=== PATIENT | male | born 1990 | race Caucasian/White ===

== ENCOUNTER 2017-02-09 09:38 | Emergency (ER) | payer SELFPAY ==
[~2017-02-09] VITALS: Ht 185.4 cm; Wt 86.2 kg
[2017-02-09] MEDS ORDERED: MOBIC7.5 MG PO (09:47)
[2017-02-09] MEDS ORDERED: SOMA350 MG PO (09:48)
[2017-02-09] MEDS ORDERED: OXYCODONE HCL20 M1 PO (09:48)
[2017-02-09] MEDS ORDERED: METHYLPREDNISOLO4 M1 PO (10:02)
== END 2017-02-09 10:10 | disposition home or self-care (01) ==
LOC: ED 09:38
DX: M54.5 Low back pain (principal); Z90.89 Acquired absence of other organs; Z79.899 Other long term (current) drug therapy
CPT/HCPCS: 99283

== ENCOUNTER 2018-08-29 14:10 | Emergency (ER) | payer OTHER ==
[~2018-08-29] VITALS: Ht 185.4 cm; Wt 86.2 kg
--- OUTSIDE RECORDS SUMMARY | ~2018-08-29 | XMS | Encounter Summary ---
Demographics + + + | Address | [address] | | | [place] [address] | + + + | Home Phone | | + + + | Preferred Language | Unknown | + + + | Marital Status | Single | + + + | Episcopalian Affiliation | Unknown | + + + | Race | Unknown | + + + | Ethnic Group | Unknown | + + + Author + + + | Author | [facility] | | | and [place]it[place] | + + + | Organization | [facility] | | | and [place] | + + + | Address | Unknown | + + + | Phone | Unavailable | + + + Support + + +---------+ + | Name | Relationship | Address | Phone | + + +---------+ + | Ottoniel Madison | ECON | Unknown | | + + +---------+ + Care Team Providers + +------+ + | Care Grants And Contracts Assistant Name | Role | Phone | + +------+ + | Jenaro Lutz MD | PCP | | + +------+ + Encounter Details +--------+ + + + + | Date | Type | Department | Care Team | Description | +--------+ + + + + | 05/08/ | Procedure | [facility] | | | | 2017 | Pass | [facility] [address] | | | | | | [place], | | | | | | [place] [address] | | | | | | [phone] | | | +--------+ + + + + Social History + +-------+ +--------+------+ | Tobacco Use | Types | Packs/Day | Years | Date | | | | | Used | | + +-------+ +--------+------+ | Former Smoker | | | | | + +-------+ +--------+------+ + +------+---+---+ | Smokeless Tobacco: | Chew | | | | Current User | | | | + +------+---+---+ + + + | Sex Assigned at | Date Recorded | | | | + + + | Not on file | | + + + as of this encounter Plan of Treatment +--------+---------+ + + + | Date | Type | Specialty | Care Team | Description | +--------+---------+ + + + | 09/05/ | Office | Orthopedic Surgery | Xu Barajas | | | 2018 | Visit | | MD Mu Kaplan | | | | | | [place] | | | | | | [id number] | | | | | | | | +--------+---------+ + + + as of this encounter Visit Diagnoses Not on filein this encounter"
--- OUTSIDE RECORDS SUMMARY | ~2018-08-29 | XMS | Encounter Summary ---
Demographics + + + | Address | [address] | | | [place] [address] | + + + | Home Phone | | + + + | Preferred Language | Unknown | + + + | Marital Status | Single | + + + | Christian Affiliation | Unknown | + + + | Race | Unknown | + + + | Ethnic Group | Unknown | + + + Author + + + | Author | [facility] | | | and [place]it[place] | + + + | Organization | [facility] | | | and [place] | [...] Team Providers + +------+ + | Care Material Disposition Inspector Name | Role | Phone | + +------+ + | Jenaro Lutz MD | PCP | | + +------+ + Reason for Referral Diagnostic/Screening (Routine) +--------+--------+ + + + + | Status | Reason | Specialty | Diagnoses / | Referred By | Referred To | | | | | Procedures | Contact | Contact | +--------+--------+ + + + + | Closed | | Radiology | Diagnoses | Amy, | [facility] | | | | | Pain in | Rory | [address] | | | | | both knees, | [address] Boss | [place], | | | | | unspecified | [address] | [place] | | | | | chronicity | [place] | [address] | | | | | Internal | [place], [place] | Phone: | | | | | derangement | [address] | [phone] | | | | | of both | Phone: | Fax: | | | | | knees | [phone] | [phone] | | | | | Procedures | Fax: | | | | | | MRI Knee | [phone] | | | | | | Right wo | | | | | | | Contrast | | | +--------+--------+ + + + + Diagnostic/Screening (Routine) +--------+--------+ + + + + | Status | Reason | Specialty | Diagnoses / | Referred By | Referred To | | | | | Procedures | Contact | Contact | +--------+--------+ + + + + | Closed | | Radiology | Diagnoses | Amy, | [facility] | | | | | Pain in | Rory | [address] | | | | | both knees, | MADELEINE Bsos | [place], | | | | | unspecified | [address] | [place] | | | | | chronicity | [place] | [address] | | | | | Internal | [place], [place] | Phone: | | | | | derangement | [address] | [phone] | | | | | of both | Phone: | Fax: | | | | | knees | [phone] | [phone] | | | | | Procedures | Fax: | | | | | | MRI Knee | [phone] | | | | | | Right wo | | | | | | | Contrast | | | +--------+--------+ + + + + Reason for Visit Diagnostic/Screening (Routine) +--------+--------+ + + + + | Status | Reason | Specialty | Diagnoses / | Referred By | Referred To | | | | | Procedures | Contact | Contact | +--------+--------+ + + + + | Closed | | Radiology | Diagnoses | Amy, | [facility] | | | | | Pain in | Rory | [address] | | | | | both knees, | MADELEINE Boss | [place], | | | | | unspecified | [address] | [place] | | | | | chronicity | [place] | [address] | | | | | Internal | [place] | Phone: | | | | | derangement | [address] | [phone] | | | | | of both | Phone: | Fax: | | | | | knees | [phone] | [phone] | | | | | Procedures | Fax: | | | | | | MRI Knee | [phone] | | | | | | Right wo | | | | | | | Contrast | | | +--------+--------+ + + + + Encounter Details +--------+ + + + + | Date | Type | Department | Care Team | Description | +--------+ + + + + | 06/13/ | Hospital | [facility] | Rory Reyes | Pain in both knees, | | 2019 | Encounter | MED CTR MRI [address] | [address] | unspecified | | | | [address] [place], | [address] [place] | chronicity; Internal | | | | [place] [address] | [place] [address] | derangement of both | | | | [phone] | [phone] | knees | | | | | | | +--------+ + + + [...] + + + as of this encounter Medications at Time of Discharge + + +-------+---------+ + + | Medication | Sig. | Disp. | Refills | Start | End Date | | | | | | Date | | + + +-------+---------+ + + | Ascorbic Acid | VITAMIN C 250 MG | | | 12/21/19 | | | (VITAMIN C) 250 MG | TABS | | | 18 | | | tablet | | | | | | + + +-------+---------+ + + | | Take by mouth as | | | | | | Aspirin-Acetaminophe | needed. | | | | | | n-Caffeine (EXCEDRIN | | | | | | | PO) | | | | | | + + +-------+---------+ + + | raNITIdine | RANITIDINE HCL 150 | | | 12/21/19 | | | (ZANTAC) 150 MG | MG CAPS | | | 18 | | | capsule | | | | | | + + +-------+---------+ + + as of this encounter Plan of Treatment +--------+---------+ + + + | Date | Type | Specialty | Care Team | Description | +--------+---------+ + + + | 09/05/ | Office | Orthopedic Surgery | Xu Barajas | | | 2019 | Visit | | MD Mu Kaplan | | | | | | [place] | | | | | | [id number] | | | | | | | | +--------+---------+ + + + as of this encounter Procedures + +--------+ + + + | Procedure Name | Priori | Date/Time | Associated Diagnosis | Comments | | | ty | | | | + +--------+ + + + | MRI KNEE RIGHT WO | Routin | 06/13/2018 | Pain in both | Results for this | | CONTRAST | e | 1431 PST | knees, unspecified | procedure are in the | | | | | chronicity Internal | results section. | | | | | derangement of both | | | | | | knees | | + +--------+ + + + in this encounter Results MRI Knee Right wo Contrast (06/13/2018 1431) + + + | Narrative | Performed At | + + + | TECHNIQUE: MRI of the right knee with sequences to include sagittal | [facility] | | STIR, axial proton density, sagittal proton density, coronal proton | | | density, coronal T1, and sagittal T2. CLINICAL INFORMATION: | | | BILATERAL KNEE PAIN COMPARISON: Radiographs 05/04/2018 | | | FINDINGS: JOINT EFFUSION None. MENISCI Medial meniscus: | | | Intact. Lateral meniscus: Intact. LIGAMENTS Cruciate ligaments: | | | Anterior cruciate ligament is intact. Posterior cruciate ligament | | | is intact. Medial collateral ligament complex: Intact. Lateral | | | collateral ligament complex: Intact. Posterolateral corner | | | structures: Intact. EXTENSOR MECHANISM Extensor mechanism: The | | | distal quadriceps and patellar tendons are intact. The patella is | | | normally positioned within the femoral groove. OSSEOUS and | | | ARTICULAR STRUCTURES Bones: No fracture, bone marrow edema, or bony | | | lesion. Patellofemoral compartment: No hyaline cartilage disease. | | | Medial compartment: No hyaline cartilage disease. Lateral | | | compartment: No hyaline cartilage disease. OTHER FINDINGS | | | Neurovascular structures: Unremarkable . Soft tissues: Small Ryan's | | | cyst noted. Nonspecific mild distention of the capsule surrounding | | | the mid popliteus tendon. Mild edema is noted within the anterior | | | aspect of the popliteus muscle. Slight prominent medial plica | | | noted. IMPRESSION - No ligament or meniscus tear. Mild | | | focal edema at the anterior aspect of the popliteus muscle, may | | | represent mild strain. The popliteus tendon appears intact. | | | Slight prominent appearance of a medial plica. Small Ryan's cyst. | | | Dictated and Signed by: John Fan MD Electronically | | | signed: 06/13/2018 2:50 PM | | + + + + + | Procedure Note | + + | Serg, Rad Results In - 06/13/2018 1453 PST TECHNIQUE: MRI of the right knee with | | sequences to include sagittal STIR, axialproton density, sagittal proton density, | | coronal proton density, coronal T1, andsagittal T2.CLINICAL INFORMATION: BILATERAL KNEE | | PAINCOMPARISON: Radiographs 05/04/2018FINDINGS:JOINT EFFUSIONNone.MENISCIMedial | | meniscus: Intact. Lateral meniscus: Intact. LIGAMENTSCruciate ligaments: Anterior | | cruciate ligament is intact. Posterior cruciateligament is intact.Medial collateral | | ligament complex: Intact.Lateral collateral ligament complex: Intact. Posterolateral | | corner structures: Intact.EXTENSOR MECHANISMExtensor mechanism: The distal quadriceps | | and patellar tendons are intact. Thepatella is normally positioned within the femoral | | groove.OSSEOUS and ARTICULAR STRUCTURESBones: No fracture, bone marrow edema, or bony | | lesion.Patellofemoral compartment: No hyaline cartilage disease. Medial compartment: No | | hyaline cartilage disease.Lateral compartment: No hyaline cartilage disease.OTHER | | FINDINGSNeurovascular structures: Unremarkable .Soft tissues: Small Ryan's cyst noted. | | Nonspecific mild distention of thecapsule surrounding the mid popliteus tendon. Mild | | edema is noted within theanterior aspect of the popliteus muscle. Slight prominent | | medial plica noted.IMPRESSION - No ligament or meniscus tear.Mild focal edema at the | | anterior aspect of the popliteus muscle, may representmild strain. The popliteus tendon | | appears intact.Slight prominent appearance of a medial plica.Small Ryan's | | cyst.Dictated and Signed by: John Fan MD Electronically signed: 06/13/2018 2:50 PM | |ligament is intact. | |Medial collateral ligament complex: Intact. | |Lateral collateral ligament complex: Intact. | |Posterolateral corner structures: Intact. | | | |EXTENSOR MECHANISM | |Extensor mechanism: The distal quadriceps and patellar tendons are intact. The | |patella is normally positioned within the femoral groove. | | | |OSSEOUS and ARTICULAR STRUCTURES | |Bones: No fracture, bone marrow edema, or bony lesion. | |Patellofemoral compartment: No hyaline cartilage disease. | |Medial compartment: No hyaline cartilage disease. | |Lateral compartment: No hyaline cartilage disease. | | | |OTHER FINDINGS | |Neurovascular structures: Unremarkable . | |Soft tissues: Small Ryan's cyst noted. Nonspecific mild distention of the | |capsule surrounding the mid popliteus tendon. Mild edema is noted within the | |anterior aspect of the popliteus muscle. Slight prominent medial plica noted. | | | | | |IMPRESSION - | |No ligament or meniscus tear. | | | |Mild focal edema at the anterior aspect of the popliteus muscle, may represent | |mild strain. The popliteus tendon appears intact. | | | |Slight prominent appearance of a medial plica. | | | |Small Ryan's cyst. | | | |Dictated and Signed by: John Fan MD | | Electronically signed: 06/13/2018 2:50 PM | + + + +---------+ + + | Performing | Address | City/State/Zipcode | Phone Number | | Organization | | | | + +---------+ + + | [facility] | | | | + +---------+ + + in this encounter Visit Diagnoses + + | Diagnosis | + + | Pain in both knees, unspecified chronicity | + + | Internal derangement of both knees | + + | Unspecified internal derangement of knee | + +"
--- OUTSIDE RECORDS SUMMARY | ~2018-08-29 | XMS | Encounter Summary ---
Demographics + + + | Address | [address] | | | [place] [address] | + + + | Home Phone | | + + + | Preferred Language | Unknown | + + + | Marital Status | Single | + + + | Samaritan Affiliation | Unknown | + + + | Race | Unknown | + + + | Ethnic Group | Unknown | + + + Author + + + | Author | [facility] | | | and [place] | + + + | Organization | [facility] | | | and [place] [...] Team Providers + +------+ + | Care Electrical Contacts Adjuster Name | Role | Phone | + +------+ + | Jenaro Lutz MD | PCP | | + +------+ + Reason for Visit + + + | Reason | Comments | + + + | Follow-up | right knee pain/ review MRI | + + + Encounter Details +--------+---------+ + + + | Date | Type | Department | Care Team | Description | +--------+---------+ + + + | 06/13/ | Office | [facility] | Rory Reyes | Plica syndrome of | | 2019 | Visit | ORTHOPEDIC SURGERY | [address] | right knee (Primary | | | | [address] | [address] [place] | Dx); Chronic pain of | | | | [place], [place] | [place] [address] | right knee | | | | [address] | [phone] | | | | | [phone] | | | +--------+---------+ + + + Social History + +-------+ [...] + + + as of this encounter Last Filed Vital Signs + + + + | Vital Sign | Reading | Time Taken | + + + + | Blood Pressure | - | - | + + + + | Pulse | - | - | + + + + | Temperature | - | - | + + + + | Respiratory Rate | - | - | + + + + | Oxygen Saturation | - | - | + + + + | Inhaled Oxygen | - | - | | Concentration | | | + + + + | Weight | 86.2 kg (190 lb) | 06/13/20181520 PST | + + + + | Height | 185.4 cm (6' 1") | 06/13/20181520 PST | + + + + | Body Mass Index | 25.07 | 06/13/20181520 PST | + + + + in this encounter Progress Notes Rory Reyes PA-C - 06/13/2018 1530 PSTFormatting of this note may be different fro m the original. Name:Dannie Rosales Todays Date: 06/15/2018 Age: 27 y.o. PCP: Jenaro Lutz MD Chief Complaint Patient presents with Follow-up right knee pain/ review MRI SUBJECTIVE: Patient returns today to review right knee MRI that was recently obtained. To review patie nt has had chronic right knee pain has been present for well over the past 4-5 years. Descr ibes he has had multiple traumas at the right knee but is never had any thorough investigati ve workup. He has had several courses of injection therapy at see both of his knees over past several years professed in that he obtains about 3-4 injections every year by his [facility] care provider in [place]. He verbalizes that he has had well over 12 injections H knee o sarwat the past many years. Describes of the number may be even double that. The right knee p ain continues to be prominent and worse at the medial aspect of the knee. Pain is increased with any degree of mobilization, weightbearing and any increased activity. Current level p ain is rated at 5 OBJECTIVE: Ambulates without assistance of a walker and/or cane. No significant abnormal gait is obse rved. No guarding is clearly appreciated with simple inspection. He has prominent pain whe n palpating over the anterior medial mid joint line compartment. This is the area that is c ausing him pain. He has pain with Mary test. Imaging/Studies: Mri Knee Right Wo Contrast Result Date: 06/13/2018 TECHNIQUE: MRI of the right knee with sequences to include sagittal STIR, axial proton dens ity, sagittal proton density, coronal proton density, coronal T1, and sagittal T2. CLINICAL INFORMATION: BILATERAL KNEE PAIN COMPARISON: Radiographs 05/04/2018 FINDINGS: JOINT EFFUSION None. MENISCI Medial meniscus: Intact. Lateral meniscus: Intact. LIGAMENTS Cruciate ligame nts: Anterior cruciate ligament is intact. Posterior cruciate ligament is intact. Medial co llateral ligament complex: Intact. Lateral collateral ligament complex: Intact. Posterolater al corner structures: Intact. EXTENSOR MECHANISM Extensor mechanism: The distal quadriceps a nd patellar tendons are intact. The patella is normally positioned within the femoral groove . OSSEOUS and ARTICULAR STRUCTURES Bones: No fracture, bone marrow edema, or bony lesion. Pa tellofemoral compartment: No hyaline cartilage disease. Medial compartment: No hyaline carti tristan disease. Lateral compartment: No hyaline cartilage disease. OTHER FINDINGS Neurovascula r structures: Unremarkable . Soft tissues: Small Ryan's cyst noted. Nonspecific mild diste ntion of the capsule surrounding the mid popliteus tendon. Mild edema is noted within the a nterior aspect of the popliteus muscle. Slight prominent medial plica noted. IMPRESSION - N o ligament or meniscus tear. Mild focal edema at the anterior aspect of the popliteus muscle , may represent mild strain. The popliteus tendon appears intact. Slight prominent appearan ce of a medial plica. Small Ryan's cyst. Dictated and Signed by: John Fan MD Electr onically signed: 06/13/2018 2:50 PM Vitals: 06/13/18 1521 Weight: 86.2 kg (190 lb) Height: 1.854 m (6' 1") ASSESSMENT/PLAN: 1. Chronic right knee pain 2. Right knee medial plica A. we carefully reviewed the MRI today. There is no clear suggestion of meniscal patholog y but there is suspicion that he may have a small focal tear at the anterior horn of the med ial meniscus that is observed best on the coronal views. An 9 ligament with the radiologist that it is appear to be a prominent medial plica observed also at the anterior medial horn. Patient has had chronic pain for many years and received numerous injections of this knee which is forced to provide no significant pain relief. He easily has had the most numerous injections that have observed for a patient at this young of age. We discussed treatment op tions to include continued observation, pain medication, physical therapy and repeat injecti on therapy. We discussed definitive treatment in the way of diagnostic arthroscopy. Given that he has failed multiple conservative measures over the past many years to include observ ation, modification of activity [id number] medication and numerous injection therapy h stella wishes to pursue with definitive treatment. He is a good candidate for a right knee arthr oscopy and debridement. We can remove the right knee plica which may indeed provide him colin e degree of pain relief. There is increased effusion observed at the knee as well and I sti ll do question the possibility of a meniscus tear that may not be well visualized on the MRI . In light of these discussion I will seek medical authorization for a right knee arthrosco py and debridement. Follow-up in my office will be for preoperative exam. B. Patient is advised that if they have any questions, comments or concerns to contact our office. Electronically signed by: Rory Reyes PA-C 06/15/2018 17:06 If patient received pain medication today the prescription monitoring program was reviewed and patient appears to be in compliance with his program. This note was dictated using the [email or web address] recognition system. Minor errors in grammar may have occurred. 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
--- OUTSIDE RECORDS SUMMARY | ~2018-08-29 | XMS | Encounter Summary ---
Demographics + + + | Address | [address] | | | [place] [address] | + + + | Home Phone | | + + + | Preferred Language | Unknown | + + + | Marital Status | Single | + + + | Hoahaoism Affiliation | Unknown | + + + | Race | Unknown | + + + | Ethnic Group | Unknown | + + + Author + + + | Author | [facility] | | | and Manjitana | + + + | Organization | [facility] | | | and [...] Team Providers + +------+ + | Care Jogger Operator Name | Role | Phone | + +------+ + | Jenaro Lutz MD | PCP | | + +------+ + Reason for Visit Auth/Cert +--------+--------+ + + + + | Status | Reason | Specialty | Diagnoses / | Referred By | Referred To | | | | | Procedures | Contact | Contact | +--------+--------+ + + + + | | | | Diagnoses | | | | | | | Plica | | | | | | | syndrome of | | | | | | | right knee | | | | | | | (M67.51), | | | | | | | Chronic pain | | | | | | | of right | | | | | | | knee | | | | | | | (M25.561, | | | | | | | G89.29), | | | | | | | Internal | | | | | | | derangement | | | | | | | of both | | | | | | | knees | | | | | | | (M23.91, | | | | | | | M23.92) | | | | | | | Procedures | | | | | | | MO KNEE | | | | | | | SCOPE,DIAGNO | | | | | | | STIC MO | | | | | | | KNEE | | | | | | | SCOPE,PART | | | | | | | SYNOVECT MO | | | | | | | KNEE | | | | | | | SCOPE,SHAVE | | | | | | | ARTICULAR | | | | | | | CART MO | | | | | | | ARTHRS KNEE | | | | | | | W/MENISCECTO | | | | | | | MY MED&LAT | | | | | | | W/SHAVING | | | | | | | MO ARTHRS | | | | | | | KNE SURG | | | | | | | W/MENISCECTO | | | | | | | MY MED/LAT | | | | | | | W/SHVG MO | | | | | | | KNEE | | | | | | | SCOPE,MED OR | | | | | | | LAT MENIS | | | | | | | REPAIR | | | | | | | RIGHT KNEE | | | | | | | ARTHROSCOPY | | | | | | | & | | | | | | | DEBRIDEMENT | | | +--------+--------+ + + + + Encounter Details +--------+---------+ + + + | Date | Type | Department | Care Team | Description | +--------+---------+ + + + | 08/25/ | Surgery | [facility] | Xu Barajas | RIGHT KNEE | | 2019 | | MED CTR OR INTRA OP | MD E[address] [facility] | ARTHROSCOPY & | | | | [address] | [place] | DEBRIDEMENT AND | | | | [place] | [address] | PARTIAL SYNOVECTOMY | | | | [address] | | | | | | [phone] | | | +--------+---------+ + + + Social History + + + +--------+ + | Tobacco Use | Types | Packs/Day | Years | Date | | | | | Used | | + + + +--------+ + | Former Smoker | Cigarettes | | 10 | Quit: 02/04/2018 | + + + +--------+ + + +------+---+---+ | Smokeless Tobacco: | Chew | | | | Current User | | | | + +------+---+---+ + + +---------+ + | Alcohol Use | Drinks/We | oz/Week | Comments | | | ek | | | + + +---------+ + | Yes | 2 Cans | 1.2 | | | | of beer | | | + + +---------+ + + + + | Sex Assigned at | Date Recorded | | | | + + + | Not on file | | + + + as of this encounter Last Filed Vital Signs + + + + | Vital Sign | Reading | Time Taken | + + + + | Blood Pressure | 126/52 | 08/25/2018 1230 PDT | + + + + | Pulse | 87 | 08/25/2018 1230 PDT | + + + + | Temperature | 36.2 C (97.2 F) | 08/25/2018 1031 PDT | + + + + | Respiratory Rate | 14 | 08/25/2018 1215 PDT | + + + + | Oxygen Saturation | 95% | 08/25/2018 1230 PDT | + + + + | Inhaled Oxygen | - | - | | Concentration | | | + + + + | Weight | 91 kg (200 lb 9.9 | 08/25/201850 PDT | | | oz) | | + + + + | Height | 185.4 cm (6' 1") | 08/25/201850 PDT | + + + + | Body Mass Index | 26.47 | 08/25/201850 PDT | + + + + in this encounter Discharge Instructions Rory Reyes PA-C - 08/25/2018Plekelli keep appointment in Dr Barajas's office as a lready scheduled. Remove the bandages on the third post op day but leave steri-strips in place. Apply bandai ds to portal wound sites. May get wound wet in shower on third post op day. May shower gelacio or to this if bandages and wound are protected from water with Saran wrap or something simil ar. Post Operative Care: You can discontinue use of crutches in 1-2. Proceed to full wt bearing on right foot as tolerated Continue to perform gentle range of motion of knee as tolerated Take pain medication as prescribed if prescribed Take one aspirin 325mg daily for blood thinning therapy for next month. Feel free to bring in your images of your knee at post operative visit to review. No jumping off of tractors.....or your truck Light activities please for 6 wks. If you have any questions, comments or concerns please contact our office Do not exceed 4,000 mg of acetaminophen (Tylenol) per day. Hydrocodone-acetaminophen (Cotopaxi ) and Oxycodone-acetaminophen (Percocet) have 325 mg acetaminophen per tablet. Regular stren gth acetaminophen is 325 mg per tablet. Extra strength has 500 mg per tablet. Do not consume alcohol while taking opioid mediations. If constipation arises, try docusate-senna one tablet twice daily; milk of magnesia 30 mL o nce each night; or Miralax one capful (17 grams) dissolved in half a cup of water once daily for 3 days. If constipation does not resolve within 3 days after discharge, contact the doc tor's office. in this encounter Medications at Time of Discharge + + +--------+---------+ + + | Medication | Sig. | Disp. | Refills | Start | End Date | | | | | | Date | | + + +--------+---------+ + + | Ascorbic Acid | VITAMIN C 250 MG | | | 12/21/19 | | | (VITAMIN C) 250 MG | TABS | | | 18 | | | tablet | | | | | | + + +--------+---------+ + + | aspirin 325 mg | Take 1 tablet by | 30 | 0 | / | | | tablet | mouth Daily. | tablet | | 19 | | + + +--------+---------+ + + | | Take by mouth as | | | | | | Aspirin-Acetaminophe | needed. | | | | | | n-Caffeine (EXCEDRIN | | | | | | | PO) | | | | | | + + +--------+---------+ + + | | Take 1 tablet by | 40 | 0 | / | | | HYDROcodone-acetamin | mouth EVERY 4 TO 6 | tablet | | 19 | | | ophen (NORCO) 5-325 | HOURS NEEDED for | | | | | | mg per tablet | Pain. | | | | | + + +--------+---------+ + + | | Take 1-2 tablets by | 40 | 0 | 08/26/19 | | | oxyCODONE-acetaminop | mouth every 6 hours | tablet | | 19 | | | hen (PERCOCET) 5-325 | as needed for Pain. | | | | | | mg per tablet | | | | | | + + +--------+---------+ + + | raNITIdine | RANITIDINE HCL 150 | | | 12/21/19 | | | (ZANTAC) 150 MG | MG CAPS | | | 18 | | | capsule | | | | | | + + +--------+---------+ + + as of this encounter Plan of Treatment +--------+---------+ + + + | Date | Type | Specialty | Care Team | Description | +--------+---------+ + + + | 09/05/ | Office | Orthopedic Surgery | Xu Barajas | | | 2019 | Visit | | MD Mu Kaplan | | | | | | [address] [address] | | | | | | [address] | | | | | | | | +--------+---------+ + + + as of this encounter Procedures + +--------+ + + + | Procedure Name | Priori | Date/Time | Associated Diagnosis | Comments | | | ty | | | | + +--------+ + + + | ARTHROSCOPY KNEE | | 08/25/2018 | Plica syndrome of | | | | | 1007 PDT | right knee (M67.51), | | | | | | Chronic pain of | | | | | | right knee (M25.561, | | | | | | G89.29), Internal | | | | | | derangement of both | | | | | | knees (M23.91, | | | | | | M23.92) | | + +--------+ + + + +---+--------+ | | Case | | | Notes | | | | +---+--------+ in this encounter Visit Diagnoses Not on filein this encounter Admitting Diagnoses + + | Diagnosis | + + | 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), Chronic pain of right knee (M25.561, G89.29), | | Internal derangement of both knees (M23.91, M23.92) | + + Administered Medications + +--------+ + +------+------+ | Medication Order | MAR | Action | Dose | Rate | Site | | | Action | Date | | | | + +--------+ + +------+------+ | acetaminophen (TYLENOL) tablet | Given | | 1,000 mg | | | | 1,000 mg 1,000 mg, Oral, ONCE, | | 9 9:35 | | | | | 08/25/18 at 1000, For 1 dose, | | PDT | | | | | Pre-op | | | | | | + +--------+ + +------+------+ + +---+ | | | + +---+ | albuterol 2.5 mg/3 mL nebulizer | | | solution 2.5 mg 2.5 mg, | | | Nebulization, ONCE PRN, Wheezing, | | | Starting Tue08/25/18 at 0931, | | | For 1 dose, RT will administer. | | + +---+ | | | + +---+ | albuterol-ipratropium 2.5-0.5 | | | mg/3 mL nebulizer solution 3 mL | | | 3 mL, Nebulization, ONCE PRN, | | | Wheezing, Shortness of Breath, | | | Starting Tue08/25/18 at 1029, For | | | 1 dose, Recovery/Phase I | | + +---+ | | | + +---+ + +-------+ +------+---+---+ | dexamethasone (DECADRON) tablet | Given | | 8 mg | | | | 8 mg 8 mg, Oral, ONCE, Tue | | 9 9:35 | | | | | 08/25/18 at 1000, For 1 dose, | | PDT | | | | | Pre-op | | | | | | + +-------+ +------+---+---+ + +---+ | | | + +---+ | dextrose 50% injection 12.5-25 | | | g 12.5-25 g, Intravenous, EVERY | | | 15 MIN PRN, Low Blood Sugar, Give | | | 12.5g (25 mL) IV if blood | | | glucose 50-69 mg/dL. Give 25g | | | (50 mL) IV if blood glucose < 50, | | | Starting Tue08/25/18 at 0931, | | | Repeat in 15 min if blood glucose | | | remains < 70 mg/dL. Repeat | | | blood glucose in 30 min once | | | blood glucose > 70. | | + +---+ | | | + +---+ | diphenhydrAMINE (BENADRYL) 12.5 | | | mg/5 mL liquid 25 mg 25 mg, | | | Oral, EVERY 4 HOURS PRN, Itching, | | | Starting Tue08/25/18 at 1140, | | | Give nalbuphine 1st, if | | | ineffective or not ordered, | | | administer diphenhydrAMINE. | | | Oral route is preferred. | | + +---+ | | | + +---+ | diphenhydrAMINE (BENADRYL) | | | injection 12.5 mg 12.5 mg, | | | Intravenous, EVERY 4 HOURS PRN, | | | Itching, Starting Tue08/25/18 at | | | 1140, Give nalbuphine 1st, if | | | ineffective or not ordered, | | | administer diphenhydrAMINE. | | | Oral route is preferred. | | + +---+ | | | + +---+ | diphenhydrAMINE (BENADRYL) | | | tablet 25 mg 25 mg, Oral, EVERY | | | 4 HOURS PRN, Itching, Starting | | | 08/25/18 at 1140, Give | | | nalbuphine 1st, if ineffective or | | | not ordered, administer | | | diphenhydrAMINE. Oral route is | | | preferred. | | + +---+ | | | + +---+ + +-------+ +--------+---+---+ | fentaNYL (PF) injection 25 mcg | Given | | 25 mcg | | | | 25 mcg, Intravenous, EVERY 5 MIN | | 9 10:46 | | | | | PRN, Pain, Starting Tue08/25/18 | | PDT | | | | | at 1029, Maximum total dose 200 | | | | | | | mcg. PACU IV Narcotic Priority: | | | | | | | Only use fentanyl for immediate | | | | | | | post-op pain (one dose) or | | | | | | | breakthrough pain when any other | | | | | | | IV narcotics ordered have been | | | | | | | ineffective (if ordered). If | | | | | | | both morphine and hydromorphone | | | | | | | are ordered, use morphine first, | | | | | | | and use hydromorphone if morphine | | | | | | | ineffective. | | | | | | + +-------+ +--------+---+---+ +-------+ +--------+---+---+ | Given | | 25 mcg | | | | | 9 10:53 | | | | | | PDT | | | | +-------+ +--------+---+---+ +---+---+ | | | +---+---+ + +-------+ +--------+---+---+ | HYDROmorphone (DILAUDID) | Given | | 0.5 mg | | | | injection 0.2-0.5 mg 0.2-0.5 mg, | | 9 11:04 | | | | | Intravenous, EVERY 10 MIN PRN, | | PDT | | | | | Pain, Starting Tue08/25/18 at | | | | | | | 1029, Maximum total dose 4 mg. | | | | | | | PACU IV Narcotic Priority: Only | | | | | | | use fentanyl for immediate | | | | | | | post-op pain (one dose) or | | | | | | | breakthrough pain when any other | | | | | | | IV narcotics ordered have been | | | | | | | ineffective (if ordered). If | | | | | | | both morphine and hydromorphone | | | | | | | are ordered, use morphine first, | | | | | | | and use hydromorphone if morphine | | | | | | | ineffective. | | | | | | + +-------+ +--------+---+---+ +-------+ +--------+---+---+ | Given | | 0.5 mg | | | | | 9 11:17 | | | | | | PDT | | | | +-------+ +--------+---+---+ | Given | | 0.5 mg | | | | | 9 11:34 | | | | | | PDT | | | | +-------+ +--------+---+---+ +---+---+ | | | +---+---+ + +---------+ +---+ +---+ | lactated ringers (LR) infusion | New Bag | | | 50 mL/hr | | | at 10-100 mL/hr, Intravenous, | | 9 9:36 | | | | | CONTINUOUS, Starting 08/25/18 | | PDT | | | | | at 1000, TKO. | | | | | | + +---------+ +---+ +---+ +---+---+ | | | +---+---+ + +-------+ +--------+---+ + | lidocaine 2%-EPINEPHrine | Given | | 30 mLs | | Surgical | | 1:100,000 injection PRN, | | 9 10:21 | | | Site | | Starting 08/25/18 at 1021, | | PDT | | | | | Intra-op | | | | | | + +-------+ +--------+---+ + + +---+ | | | + +---+ | meperidine (DEMEROL) injection | | | 12.5 mg 12.5 mg, Intravenous, | | | PRN, Shivering, Starting Fri | | | 08/25/18 at 1029, For 2 doses, May | | | Repeat once in 15 min. | | + +---+ | | | + +---+ | metoclopramide (REGLAN) 5 mg/mL | | | injection 10 mg 10 mg, | | | Intravenous, ONCE PRN, Nausea, | | | Vomiting, Starting 08/25/18 at | | | 1029, For 1 dose, Protect from | | | light. | | + +---+ | | | + +---+ | ondansetron (ZOFRAN ODT) | | | disintegrating tablet 4 mg 4 mg, | | | Oral, EVERY 6 HOURS PRN, Nausea, | | | Vomiting, Starting 08/25/18 | | | at 1140, First line agent | | + +---+ | | | + +---+ + +-------+ +------+---+---+ | ondansetron (ZOFRAN ODT) | Given | | 8 mg | | | | disintegrating tablet 8 mg 8 mg, | | 9 9:36 | | | | | Oral, ONCE, Tue08/25/18 at 1000, | | PDT | | | | | For 1 dose, Pre-op | | | | | | + +-------+ +------+---+---+ + +---+ | | | + +---+ | ondansetron (ZOFRAN) injection | | | 4 mg 4 mg, Intravenous, ONCE | | | PRN, Nausea, Starting 08/25/18 | | | at 1029, For 1 dose, | | | Recovery/Phase I | | + +---+ | | | + +---+ | ondansetron (ZOFRAN) injection | | | 4 mg 4 mg, Intravenous, EVERY 6 | | | HOURS PRN, Nausea, Vomiting, | | | Starting 08/25/18 at 1140, | | | First line agent. Use PO option | | | unless NPO status or unable to | | | tolerate. | | + +---+ | | | + +---+ + +-------+ +-------+---+---+ | oxyCODONE (ROXICODONE) tablet | Given | | 20 mg | | | | 5-20 mg 5-20 mg, Oral, EVERY 3 | | 9 11:54 | | | | | HOURS PRN, Pain, Starting Fri | | PDT | | | | | 08/25/18 at 1140, First dose must | | | | | | | be the lowest dose, can titrate | | | | | | | to effective dose by repeat of | | | | | | | lowest dose every 60 minutes prn | | | | | | | pain, may not exceed maximum dose | | | | | | | ordered per interval. Use Pasero | | | | | | | Sedation Scale. | | | | | | + +-------+ +-------+---+---+ +---+---+ | | | +---+---+ + +-------+ +--------+---+ + | ropivacaine (NAROPIN) 5 mg/mL | Given | | 20 mLs | | Surgical | | (0.5%) injection PRN, Starting | | 9 10:21 | | | Site | | 08/25/18 at 1021, Intra-op | | PDT | | | | + +-------+ +--------+---+ + + +---+ | | | + +---+ | scopolamine (TRANSDERM-SCOP) 1 | | | mg/3 days 1 patch 1 patch, | | | Transdermal, ONCE PRN, For | | | history of PONV. Need not | | | apply if h/o PONV is remote and | | | has likely been resolved with | | | modern anesthetics or | | | ondansetron. Also, please do not | | | administer to patients >65 year | | | of age without phone consult with | | | anesthesiologist., Starting Fri | | | 08/25/18 at 0931, For 1 dose, | | | Apply to mastoid process Each | | | patch is designed to deliver 1 mg | | | over 3 days. DO NOT CUT patch. | | + +---+ | | | + +---+ in this encounter
--- OUTSIDE RECORDS SUMMARY | ~2018-08-29 | XMS | Encounter Summary ---
Demographics + + + | Address | [address] | | | [place] [address] | + + + | Home Phone | | + + + | Preferred Language | Unknown | + + + | Marital Status | Single | + + + | Orthodoxy Affiliation | Unknown | + + + | Race | Unknown | + + + | Ethnic Group | Unknown | + + + Author + + + | Author | [facility] | | | and Manjitana | + + + | Organization | [facility] | | | and [place] [...] Team Providers + +------+ + | Care Pencil Sorter Name | Role | Phone | + [...] | | | | | | | ME KNEE | | | | | | | SCOPE,DIAGNO | | | | | | | STIC ME | | | | | | | KNEE | | | | | | | SCOPE,PART | | | | | | | SYNOVECT ME | | | | | | | KNEE | | | | | | | SCOPE,SHAVE | | | | | | | ARTICULAR | | | | | | | CART ME | | | | | | | ARTHRS KNEE | | | | | | | W/MENISCECTO | | | | | | | MY MED&LAT | | | | | | | W/SHAVING | | | | | | | ME ARTHRS | | | | | | | KNE SURG | | | | | | | W/MENISCECTO | | | | | | | MY MED/LAT | | | | | | | W/SHVG ME | | | | | | | [...] OR INTRA OP | MD Eusebio [address] [facility] | ARTHROSCOPY & | | | | [address] | [place] | DEBRIDEMENT AND | | | | [place] | [address] | PARTIAL SYNOVECTOMY | | | | [address] | | | | | | [phone] | | | +--------+---------+ + + + [...] mg of acetaminophen (Tylenol) per day. Hydrocodone-acetaminophen (Goodwin ) and Oxycodone-acetaminophen (Percocet) have 325 mg [...] | | | | | [place] | | | | | | [address] | | | | | | | [...]
--- OUTSIDE RECORDS SUMMARY | ~2018-08-29 | XMS | Encounter Summary ---
Demographics + + + | Address | [address] [address] | | | [place] [address] | + + + | Home Phone | | + + + | Preferred Language | Unknown | + + + | Marital Status | Single | + + + | Sabianist Affiliation | Unknown | + + + | Race | Unknown | + + + | Ethnic Group | Unknown | + + + Author + + + | Author | [facility] | | | and Manjitana | + + + | Organization | [facility] | | | and [place] [...] Team Providers + +------+ + | Care Petrophysicist Name | Role | Phone | + [...] + + | 06/13/ | Office | [facility] | Rory Reyes | Plica syndrome of | | 2019 | Visit | ORTHOPEDIC SURGERY | [address] | right knee (Primary | | | | [address] | [address] [place] | Dx); Chronic pain of | | | | [place], [place] | [facility] [place] [address] | right knee | | | | [address] | [phone] | | | | | [phone] | | | +--------+---------+ + + + [...] about 3-4 injections every year by his [facility] care provider in [place]. He verbalizes that he has had well [...] to include observ ation, modification of activity lrns-yja-snyjlzp medication and numerous injection therapy h stella [...] program. This note was dictated using the PonoMusic recognition system. Minor errors in grammar may have occurred. in this encounter Plan of Treatment +--------+---------+ + + + | Date | Type | Specialty | Care Team | Description | +--------+---------+ + + + | 09/05/ | Office | Orthopedic Surgery | Xu Barajas | | | 2018 | Visit | | MD Eusebio [address] [place] [address] | | | | | | [place] [...]
--- OUTSIDE RECORDS SUMMARY | ~2018-08-29 | XMS | Encounter Summary ---
Demographics + + + | Address | [address] [address] | | | [place] [address] | + + + | Home Phone | | + + + | Preferred Language | Unknown | + + + | Marital Status | Single | + + + | Catholic Affiliation | Unknown | + + + | Race | Unknown | + + + | Ethnic Group | Unknown | + + + Author + + + | Author | [facility] | | | and Manjitana | + + + | Organization | [facility] | | | and [place] [...] Team Providers + +------+ + | Care Telephone Directory Deliverer Name | Role | Phone | + +------+ + | Jenaro Lutz MD | PCP | | + +------+ + Reason for Referral (Routine) + +--------+ + + + + | Status | Reason | Specialty | Diagnoses / | Referred By | Referred To | | | | | Procedures | Contact | Contact | + +--------+ + + + + | Pending | | | Diagnoses | Amy, | | | Review | | | Chronic | Rory | | | | | | pain of | MADELEINE Boss | | | | | | right knee | [address] | | | | | | Procedures | [address] | | | | | | DME: | [place] | | | | | | [place] | [address] | | | | | | | Phone: | | | | | | | [phone] | | | | | | | Fax: | | | | | | | [phone] | | + +--------+ + + + + Reason for Visit Auth/Cert +--------+--------+ + [...] | | | | | | | [place] KNEE | | | | | | | SCOPE,DIAGNO | | | | | | | STIC [place] | | | | | | | KNEE | | | | | | | SCOPE,PART | | | | | | | SYNOVECT [place] | | | | | | | KNEE | | | | | | | SCOPE,SHAVE | | | | | | | ARTICULAR | | | | | | | CART [place] | | | | | | | ARTHRS KNEE | | | | | | | W/MENISCECTO | | | | | | | MY MED&LAT | | | | | | | W/SHAVING | | | | | | | WI ARTHRS | | | | | | | KNE SURG | | | | | | | W/MENISCECTO | | | | | | | MY MED/LAT | | | | | | | W/SHVG [place] | | | | | | | [...] | +--------+ + + + + | 08/25/ | Hospital | [facility] | Barajas Xu | S/P right knee | | 2019 | Encounter | MED CTR OR INTRA OP | MD Eusebio [address] | arthroscopy (Primary | | | | [address] | [place] | Dx); Chronic pain | | | | [place] | [address] | of right knee; | | | | [address] | | Synovial plica of | | | | [phone] | | right knee; Synovial | | | | | | plica of knee, | | | | | | right | +--------+ + + + + Social History + + [...] + + | Pulse | 87 | 08/25/20181229 PDT | + + + + | Temperature | 36.2 C (97.2 F) | 08/25/2018 1031 PDT | + + + + | Respiratory Rate | 14 | 08/25/2018 1215 PDT | + + + + | Oxygen Saturation | 95% | 08/25/2018 123 PDT | + + + + | Inhaled Oxygen | - | - | | Concentration | | | + + + + | Weight | 91 kg (200 lb 9.9 | 08/25/201850 PDT | | | oz) | | + + + + | Height | 185.4 cm (6' 1") | 08/25/2018 0950 PDT | + + + + | Body Mass Index | 26.47 | 08/25/2018 0950 PDT | + + + + in this encounter Discharge Instructions Rory Reyes PA-C - 08/25/2018Please keep appointment in Dr Barajas's office as [...] mg of acetaminophen (Tylenol) per day. Hydrocodone-acetaminophen ([place] ) and Oxycodone-acetaminophen (Percocet) have 325 mg [...] tablet by | 30 | 0 | //20 | | | tablet | mouth Daily. [...] tablet by | 40 | 0 | //20 | | | HYDROcodone-acetamin | mouth EVERY 4 TO 6 | tablet | | 19 | | | ophen (NORCO) 5-325 | HOURS NEEDED for | | | | | | mg per tablet | Pain. | | | | | + + +--------+---------+ + + | | Take 1-2 tablets by | 40 | 0 | 03/22/20 | | | oxyCODONE-acetaminop | mouth every [...] [place] | | | | | | [address] | | | | | | | [...] | +---+--------+ in this encounter Visit Diagnoses + + | Diagnosis | + + | S/P right knee arthroscopy - Primary | + + | Other postprocedural status | + + | Chronic pain of right knee | + + | Synovial plica of right knee | + + | Plica syndrome | + + | Synovial plica of knee, right | + + Admitting Diagnoses + + | Diagnosis | [...] HOURS PRN, Itching, | | | Starting 08/25/18 at 1140, | | | Give nalbuphine 1st, if | | | ineffective or not ordered, | | | administer diphenhydrAMINE. | | | Oral route is preferred. | | + +---+ | | | + +---+ | diphenhydrAMINE (BENADRYL) | | | injection 12.5 mg 12.5 mg, | | | Intravenous, EVERY 4 HOURS PRN, | | | Itching, Starting 08/25/18 at | | | 1140, Give nalbuphine 1st, if | | | ineffective or not ordered, | | | administer diphenhydrAMINE. | | | Oral route is preferred. | | + +---+ | | | + +---+ | diphenhydrAMINE (BENADRYL) | | | tablet 25 mg 25 mg, Oral, EVERY | | | 4 HOURS PRN, Itching, Starting | | | Tue08/25/18 at 1140, Give | | | nalbuphine [...] | | | | PRN, Pain, Starting 08/25/18 | | PDT | | [...] | | | | | Pain, Starting 08/25/18 at | | | | | | [...] | | | + +---------+ +---+ +---+ + +---+ | | | + +---+ [...] PRN, Nausea, | | | Vomiting, Starting Tue08/25/18 at | | | 1029, For 1 dose, Protect from | | | light. | | + +---+ | | | + +---+ | ondansetron (ZOFRAN ODT) | | | disintegrating tablet 4 mg 4 mg, | | | Oral, EVERY 6 HOURS PRN, Nausea, | | | Vomiting, Starting Tue08/25/18 | | | at 1140, First line [...] ONCE | | | PRN, Nausea, Starting Tue08/25/18 | | | at 1029, For 1 dose, | | | Recovery/Phase I | | + +---+ | | | + +---+ | ondansetron (ZOFRAN) injection | | | 4 mg 4 mg, Intravenous, EVERY 6 | | | HOURS PRN, Nausea, Vomiting, | | | Starting Tue08/25/18 at 1140, | | | First line [...] | | | | + +-------+ +-------+---+---+ + +---+ | | | + +---+ [...]
--- OUTSIDE RECORDS SUMMARY | ~2018-08-29 | XMS | Encounter Summary ---
Demographics + + + | Address | [address] | | | [place] [address] | + + + | Home Phone | | + + + | Preferred Language | Unknown | + + + | Marital Status | Single | + + + | Denominational Affiliation | Unknown | + + + | Race | Unknown | + + + | Ethnic Group | Unknown | + + + Author + + + | Author | [facility] | | | and Manjitana | + + + | Organization | [facility] | | | and [place] [...] Team Providers + +------+ + | Care Heating Operators Engineer Name | Role | Phone | + +------+ + | Jenaro Lutz MD | PCP | | + +------+ + Encounter Details +--------+ + + + + | Date | Type | Department | Care Team | Description | +--------+ + + + + | 08/25/ | Procedure | [facility] | | | | 2019 | Pass | [facility] | | | | | | [address] | | | | | | [place] | | | | | | [address] | | | | | | [phone] | | | +--------+ + + + [...] [place] | | | | | | [id number] | | | | | | | | +--------+---------+ + + + as of this encounter Visit Diagnoses Not on filein this encounter"
--- OUTSIDE RECORDS SUMMARY | ~2018-08-29 | XMS | Encounter Summary ---
Demographics + + + | Address | [address] | | | [place] [address] | + + + | Home Phone | | + + + | Preferred Language | Unknown | + + + | Marital Status | Single | + + + | Adventist Affiliation | Unknown | + + + | Race | Unknown | + + + | Ethnic Group | Unknown | + + + Author + + + | Author | [facility] | | | and [place] | + + + | Organization | [facility] | | | and [place] [...] Team Providers + +------+ + | Care Lead Shipper Name | Role | Phone | + +------+ + | Jenaro Lutz MD | PCP | | + +------+ + Encounter Details +--------+ + + + + | Date | Type | Department | Care Team | Description | +--------+ + + + + | 06/16/ | Orders Only | [facility] [place] | Rory Reyes | Plica syndrome of | | 2019 | | ORTHOPEDIC SURGERY | [address] | right knee (Primary | | | | [address] [facility] | [place] | Dx); Chronic pain of | | | | [place], [place] | [place] [address] | right knee; | | | | [address] | [phone] | Internal derangement | | | | [phone] | | of both knees | +--------+ + + + + Social [...] 2018 | Visit | | MD Eusebio [facility] [address] | | | | | | [place] | | | | | | [address] | | | | | | | | +--------+---------+ + + + as of this encounter Visit Diagnoses + + | Diagnosis | + + | 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
--- OUTSIDE RECORDS SUMMARY | ~2018-08-29 | XMS | Encounter Summary ---
Demographics + + + | Address | [address] | | | [place] [address] | + + + | Home Phone | | + + + | Preferred Language | Unknown | + + + | Marital Status | Single | + + + | Yarsanism Affiliation | Unknown | + + + | Race | Unknown | + + + | Ethnic Group | Unknown | + + + Author + + + | Author | [facility] | | | and [place]jitana | + + + | Organization | [facility] | | | and [place] [...] Team Providers + +------+ + | Care Hot Car Operator Name | Role | Phone | [...] knee (Primary | | | | [address] [facility] | [place] | Dx); Chronic pain of | | | | [place], [place] | [place] [address] | right knee; | | | | [address] | [phone] | Internal derangement | | | | [phone] | | of both knees | +--------+ [...] 2018 | Visit | | MD Eusebio [facility] [place] | | | | | | [place] | | | | | | [id number] | | | | | | | [...]
--- OUTSIDE RECORDS SUMMARY | ~2018-08-29 | XMS | Encounter Summary ---
Demographics + + + | Address | [address] | | | [place] [address] | + + + | Home Phone | | + + + | Preferred Language | Unknown | + + + | Marital Status | Single | + + + | Jain Affiliation | Unknown | + + + | Race | Unknown | + + + | Ethnic Group | Unknown | + + + Author + + + | Author | [facility] | | | and Manjitana | + + + | Organization | [facility] | | | and [place] [...] Team Providers + +------+ + | Care Batch And Furnace Operator Name | Role | Phone | [...] | | | | | [address] | | | | | | [place] | | | | | | [address] | | | | | | [phone] | | | +--------+ + + + [...] [place] | | | | | | [id number] | | | | | | | | +--------+---------+ + + + as of this encounter Visit Diagnoses Not on filein this encounter"
--- OUTSIDE RECORDS SUMMARY | ~2018-08-29 | XMS | Encounter Summary ---
Demographics + + + | Address | [address] | | | [place] [address] | + + + | Home Phone | | + + + | Preferred Language | Unknown | + + + | Marital Status | Single | + + + | Zoroastrian Affiliation | Unknown | + + + | Race | Unknown | + + + | Ethnic Group | Unknown | + + + Author + + + | Author | [facility] | | | and Manjit[place] | + + + | Organization | [facility] | | | and [place] [...] Team Providers + +------+ + | Care Assembler Insulator Name | Role | Phone | + [...] Pain in | Rory | [address] | | | | | both knees, | [address]LE[address] Boss | [place], | | | | | unspecified | [address] | [place] | | | | | chronicity | St [place] | [address] | | | | | Internal | [place] | Phone: | | | | | derangement | [address] | [phone] | | | | | of both | Phone: | Fax: | | | | | knees | [phone] | [phone] | | | | | Procedures | Fax: | | | | | | MRI Knee | [phone] | | | | | | Right [...] Pain in | Rory | [address] | | | | | both knees, | [address]LE[address] Boss | [place], | | | | | unspecified | [address] | [place] | | | | | chronicity | St [place] | [address] | | | | | Internal | [place] | Phone: | | | | | derangement | [address] | [phone] | | | | | of both | Phone: | Fax: | | | | | knees | [phone] | [phone] | | | | | Procedures | Fax: | | | | | | MRI Knee | [phone] | | | | | | Right [...] Pain in | Rory | [address] | | | | | both knees, | [address] Boss | [place], | | | | | unspecified | [address] | [place] | | | | | chronicity | St [place] | [address] | | | | | Internal | [place] | Phone: | | | | | derangement | [address] | [phone] | | | | | of both | Phone: | Fax: | | | | | knees | [phone] | [phone] | | | | | Procedures | Fax: | | | | | | MRI Knee | [phone] | | | | | | Right wo | | | | | | | Contrast | | | +--------+--------+ + + + + Encounter Details +--------+ + + + + | Date | Type | Department | Care Team | Description | +--------+ + + + + | 06/13/ | Hospital | [facility] | Rory Reyes | Pain in both knees, | | 2019 | Encounter | MED CTR MRI [address] | [address] | unspecified | | | | [address] [place], | [address] [place] | chronicity; Internal | | | | [place] [address] | [place] [address] | derangement of both | | | | [phone] | [phone] | knees | | | | | [...] [place] | | | | | | [id number] | | | | | | | [...]
--- OUTSIDE RECORDS SUMMARY | ~2018-08-29 | XMS | Encounter Summary ---
Demographics + + + | Address | [address] | | | [place] [address] | + + + | Home Phone | | + + + | Preferred Language | Unknown | + + + | Marital Status | Single | + + + | Gnosticist Affiliation | Unknown | + + + | Race | Unknown | + + + | Ethnic Group | Unknown | + + + Author + + + | Author | [facility] | | | and Manjitana | + + + | Organization | [facility] | | | and [place] [...] Team Providers + +------+ + | Care Site Project Manager Name | Role | Phone | + +------+ + | Jenaro Lutz MD | PCP | | + +------+ + Encounter Details +--------+ + + + + | Date | Type | Department | Care Team | Description | +--------+ + + + + | 07/05/ | Episode | [facility] | Tati Erazo, | | | 2019 | Changes | ORTHOPEDIC SURGERY | [address] | | | | | [address] [place] | | | | | | [place] | | | | | | [address] | | | | | | [phone] | | | +--------+ + + + [...] [place] | | | | | | [id number] | | | | | | | | +--------+---------+ + + + as of this encounter Visit Diagnoses Not on filein this encounter"
--- OUTSIDE RECORDS SUMMARY | ~2018-08-29 | XMS | Encounter Summary ---
Demographics + + + | Address | [address] | | | [place] [address] | + + + | Home Phone | | + + + | Preferred Language | Unknown | + + + | Marital Status | Single | + + + | Temple Affiliation | Unknown | + + + | Race | Unknown | + + + | Ethnic Group | Unknown | + + + Author + + + | Author | [facility] | | | and Manjitana | + + + | Organization | [facility] | [...] Team Providers + +------+ + | Care Pelota Maker Name | Role | Phone | + [...] 2019 | Changes | ORTHOPEDIC SURGERY | Technical Sales Consultant | | | | | [address] | | | | | | [place] | | | | | | [address] | | | | | | [phone] | | | +--------+ + + + [...] [place] | | | | | | [id number] | | | | | | | | +--------+---------+ + + + as of this encounter Visit Diagnoses Not on filein this encounter"
--- OUTSIDE RECORDS SUMMARY | ~2018-08-29 | XMS | Encounter Summary ---
Demographics + + + | Address | [address] | | | [place] [address] | + + + | Home Phone | | + + + | Preferred Language | Unknown | + + + | Marital Status | Single | + + + | Jehovah'S Witness Affiliation | Unknown | + + + | Race | Unknown | + + + | Ethnic Group | Unknown | + + + Author + + + | Author | [facility] | | | and Manjitana | + + + | Organization | [facility] | | | and [place] | [...] Team Providers + +------+ + | Care Sodium Chlorite Operator Name | Role | Phone | + +------+ + | Jenaro Lutz MD | PCP | | + +------+ + Reason for Visit + + + | Reason | Comments | + + + | Pre-op Exam | | + + + | Knee Pain | 5/10 right knee | + + + Encounter Details +--------+---------+ + + + | Date | Type | Department | Care Team | Description | +--------+---------+ + + + | 08/22/ | Office | [facility] | Xu Barajas | Plica syndrome of | | 2019 | Visit | ORTHOPEDIC SURGERY | MD Eusebio [address] | right knee (Primary | | | | [address] [facility] | [place] | Dx); Other tear of | | | | [place] | [address] | medial meniscus of | | | | [address] | | right knee as | | | | [phone] | | current injury, | | | | | | initial encounter | +--------+---------+ + + + Social History [...] + + + | Blood Pressure | 138/92 | 08/22/20181531 PDT | + + + + | Pulse | 77 | 08/22/20181531 PDT | + + + + | Temperature | 36.9 C (98.5 F) | 08/22/20181531 PDT | + + + + | Respiratory Rate | 12 | 08/22/20181531 PDT | + + + + | Oxygen Saturation | 98% | 08/22/20181531 PDT | + + + + | Inhaled Oxygen | - | - | | Concentration | | | + + + + | Weight | 91.8 kg (202 lb 6.1 | 08/22/20181531 PDT | | | oz) | | + + + + | Height | 185.4 cm (6' 1") | 08/22/20181531 PDT | + + + + | Body Mass Index | 26.7 | 08/22/2018 1532 PDT | + + + + in this encounter Progress Notes Xu Barajas MD - 08/22/2018 1530 PDTFormatting of this note may be different from the original. History of present illness: Dannie is a 28 y.o. male who presents to our clinic today for a preop examination. Dannie is scheduled for a right knee arthroscopy on 08/25/18. Mr. Rosales has a 5 year history of bilateral knee pain, right worse than left. He has received a wide variety of conservative treatment measures including oral medication as well as multiple ri ght knee joint injections. He estimates that he has had approximately 12 cortisone shots ov er the past 3-4 years from his primary care provider in [place]. He has recently undergone an MRI scan on 06/13/18 showed a moderate size popliteal cyst as well as a medial plica synovial is. Even though it was not noted by the radiologist, my review also reveals an irregularity that likely represents a tear of the posterior horn of the medial meniscus. In view of th is finding as well as his persistent symptomatology he therefore is felt to be an appropriat e candidate for a diagnostic as well as therapeutic arthroscopy of the right knee. Past Medical History: Diagnosis Date Back pain Carpal tunnel syndrome GERD (gastroesophageal reflux disease) Past Surgical History: Procedure Laterality Date TONSILLECTOMY No Known Allergies Current Outpatient Prescriptions on File Prior to Visit Medication Sig Dispense Refill Ascorbic Acid (VITAMIN C) 250 MG tablet VITAMIN C 250 MG TABS Vttippk-Xpcxbvsgxyzax-Xdutnkog (EXCEDRIN PO) Take by mouth. raNITIdine (ZANTAC) 150 MG capsule RANITIDINE HCL 150 MG CAPS No current facility-administered medications on file prior to visit. Family History Problem Relation Age of Onset Kidney disease Mother Social History Social History Marital status: Single Spouse name: N/A Number of children: N/A Years of education: N/A Occupational History Not on file. Social History Main Topics Smoking status: Former Smoker Smokeless tobacco: Current User Types: Chew Alcohol use Not on file Drug use: Unknown Sexual activity: Not on file Other Topics Concern Not on file Social History Narrative No narrative on file Review of Systems Eyes: [] Double vision [] Glasses/contacts [] Failing vision Ear/Nose/Throat: [] Frequent Colds [] Sinus Disease [] Nose obstruction [] Sneezing Spells [] Change in taste [] Artificial teeth [] Ears ringing [] Ear pain [] Hearing loss [] Teeth problems [] Hoarseness [] Neck swelling [] Sore throat [] Congestion [] Nosebleeds [] Nasal allergies Respiratory: [] Asthma/Wheezing [] Pneumonia [] Night sweats [] Shortness of breath [] Chronic cough [] Coughing up blood [] Exposure to tuberculosis Cardiovascular: [] Heart Problems [] Hypertension [] Heart murmur [] Palpitations [] Rheumatic fever [] Phlebitis [] Chest pain [] Ankle swelling [] Leg cramps [] Racin g heart [] Skipping beats [] Blood clots Gastrointestinal: [x] Abdominal pain [x] Heartburn [] Blood from rectum [] Colitis [] Gallbladder problems [] Troubl e swallowing [] Bloated stomach [] Change in stools [] Vomiting blood [] Nausea [] Hemorrhoids [] Jaundice [ ] Hepatitis [] Diarrhea [] Constipation [] Diverticulitis Urinary Tract: [] Painful urination [] Kidney Stones [] Any urine leakage [] Weak urine stream [] Night urination [] Urine infections [] Bedwetting [] Blood in urine Skin: [] Skin rashes [] Itching/Burning [] Skin bruises easil y [] Artificial tanning [] Skin cancer [] Hair loss [] Changes in moles Musculoskeletal: [] Physical handicaps [x] Back or shoulder pain []Rheumatoid disease [] Osteoarthritis [x] Joint pain [x] Joint swelling []Gout [] Leg cramps at night Neurological: [x] Headaches [] Seizures [] Stroke/TIA [] Faintness [] Tremors [x] Numbness [] Dizziness [] Changes in handwriting [] Memory loss [x] Shooting pains Psychiatric: [] Depression [] Suicidal thoughts [] Sleep pattern changes [] Appetite changes [] Recent counseling [] Nervousness/anxiety [] Physical violence [] Marital problems Endocrine: [] Thyroid [] Diabetes Systemic: []Weight loss/gain (over 10 lbs) [x]Fever/chills [x]Fatigue [x] Sleeping Difficulties [] Speech change [] Voice change Vitals: 08/22/18 1532 BP: (!) 138/92 Pulse: 77 Resp: 12 Temp: 36.9 C (98.5 F) PainSc: 5 PainLoc: Knee Estimated body mass index is 26.7 kg/m as calculated from the following: Height as of this encounter: 1.854 m (6' 1"). Weight as of this encounter: 91.8 kg (202 lb 6.1 oz). Physical examination:Patient is alert and oriented and in no acute distress. Inspection reveals: Skin is warm dry and intact with no gross deformity. Head: Oral pharnyx nonerythematous nonedematous no exudate noted Neck: Supple nontender without any lymphadenopathy. Heart: Regular rate and rhythm. Lungs: Clear to auscultation. Abdomen: Soft nontender no masses organomegaly. Cranial nerves 2-12 grossly intact. Musculoskeletal: He is tender to palpation over the medial joint line of the right knee. Neurovascular function is intact to the right foot. Assessment: Internal derangement with torn medial meniscus right knee. Plan: The patient is scheduled for a right knee arthroscopy on 08/25/18. Therefore, the maria nned procedure with its risks, possible complications, expected prognosis, and treatment alt ernatives was discussed with the patient. Risks and possible complications were listed but not limited to infection, nerve and vessel damage, bleeding, pain, scarring, stiffness, resi dual symptoms remaining after surgery, and the risk of anesthesia including . No guara ntees were given or implied other than that of diligent effort. 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
--- OUTSIDE RECORDS SUMMARY | ~2018-08-29 | XMS | Encounter Summary ---
Demographics + + + | Address | [address] | | | [place] [address] | + + + | Home Phone | | + + + | Preferred Language | Unknown | + + + | Marital Status | Single | + + + | Anabaptism Affiliation | Unknown | + + + | Race | Unknown | + + + | Ethnic Group | Unknown | + + + Author + + + | Author | [facility] | | | and Manjitana | + + + | Organization | [facility] | | | and [place] [...] Team Providers + +------+ + | Care Yard Motor Operator Name | Role | Phone | [...] | | | | | | | [place] | | | | | | | SCOPE,DIAGNO | | | | | | | STIC [place] | | | | | | | KNEE | | | | | | | SCOPE,PART | | | | | | | SYNOVECT [place] | | | | | | | KNEE | | | | | | | SCOPE,SHAVE | | | | | | | ARTICULAR | | | | | | | CART [place] | | | | | | | ARTHRS KNEE | | | | | | | W/MENISCECTO | | | | | | | MY MED&LAT | | | | | | | W/SHAVING | | | | | | | [place] ARTHRS | | | | | | | KNE SURG | | | | | | | W/MENISCECTO | | | | | | | MY MED/LAT | | | | | | | W/SHVG [place] | | | | | | | [...] + + + + | 08/25/ | Anesthesia | [facility] | Hieu Bell, | | | 2018 | Event | MED CTR OR [facility] OP | MD [address] | | | | | [address] | [place] | | | | | [place] | [address] | | | | | [address] | | | | | | [phone] | | | +--------+ + + + + Anesthesia Record + + + + + | Procedure Name | Responsible | Anesthesia Start | Anesthesia Stop Time | | | Anesthesiologist | Time | | + + + + + | RIGHT KNEE | Hieu Bell MD | 08/25/18 0937 | 08/25/18 1033 | | ARTHROSCOPY & | | | | | DEBRIDEMENT AND | | | | | PARTIAL SYNOVECTOMY | | | | | (Right Knee) | | | | + + + + + +----+---+ + + | Da | T | Event | Comment | | te | i | | | | | m | | | | | e | | | +----+---+ + + | 03 | 0 | An Checkout | Pre-use anesthesia machine/equipment checkout. | | /2 | 9 | | | | 2/ | 3 | | | | 20 | 2 | | | | 19 | | | | +----+---+ + + | | 0 | An Start | Reassessment prior to anesthesia induction/procedure. | | | 9 | | | | | 3 | | | | | 7 | | | +----+---+ + + | | 0 | Preoxygenat | | | | 9 | ed | | | | 3 | | | | | 9 | | | +----+---+ + + | | 0 | Antibiotic | | | | 9 | Given | | | | 4 | | | | | 0 | | | +----+---+ + + | | 0 | An | | | | 9 | Induction | | | | 4 | | | | | 0 | | | +----+---+ + + | | 0 | An | | | | 9 | Intubation | | | | 4 | | | | | 1 | | | +----+---+ + + | | 0 | AN Bite | | | | 9 | Block | | | | 4 | | | | | 3 | | | +----+---+ + + | | 0 | [place] | | | | 9 | 43-degrees | | | | 4 | | | | | 5 | | | +----+---+ + + | | 0 | First | | | | 9 | Inc/Proc St | | | | 5 | | | | | 7 | | | +----+---+ + + | | 1 | Breathing | | | | 0 | Spontaneous | | | | 2 | ly | | | | 7 | | | +----+---+ + + | | 1 | [place] off | | | | 0 | | | | | 2 | | | | | 7 | | | +----+---+ + + | | 1 | an stop | | | | 0 | data | | | | 2 | | | | | 8 | | | +----+---+ + + | | 1 | Extubated | | | | 0 | Awake | | | | 3 | | | | | 2 | | | +----+---+ + + | | 1 | An Stop | Patient handed off to recovery nurse. | | | 3 | | | | | 3 | | | +----+---+ + + +------+ | Meds | +------+ + +---------+ | Name | Total | + +---------+ | midazolam | 2 mg | + +---------+ | fentaNYL | 100 mcg | + +---------+ | lidocaine 2% (PF) | 100 mg | + +---------+ | propofol | 200 mg | + +---------+ | ceFAZolin (ANCEF, KEFZOL) 100 | 2 g | | mg/mL IV syringe 2 g | | + +---------+ | ketorolac | 30 mg | + +---------+ | lactated ringers (LR) infusion | 500 mL | + +---------+ + + | Name | + + | N2O Flow Rate (L/Min) | + + | O2 Flow Rate (L/Min) | + + | Insp O2 | + + | Exp SEV | + + | Air Flow Rate (L/Min) | + + + + | No blood administrations on file. | + + +--------+ + + + | Type | Details | Placement | Removal | +--------+ + + + | Periph | 08/25/18; 0936; Left; Forearm; | 08/25/1836 by | | | eral | ysly-oen-cefqke catheter system; | Gricelda Hermosillo RN | | | IV | 20 gauge, 1 1/4 in length; | | | | | distraction, intradermal | | | | | injection, tolerated well | | | +--------+ + + + | Wound | 08/25/18; 1022; Incision; Right; | 08/25/18 102 by | | | | knee | Daren Calhoun RN | | +--------+ + + + | Airway | Placement Date: 08/25/18; | 08/25/18940 by | 08/25/18 1032 by | | | Placement Time: 940 (created via | Hieu Bell MD | Hieu Bell MD | | | procedure documentation); Mask | | | | | Ventilation: EZ; Attempts: 1; | | | | | Airway Type: laryngeal mask; | | | | | Size: 5; Trauma: none; Placement | | | | | Check: exhaled CO2 detection | | | | | device; Removal Date: 08/25/18; | | | | | Removal Time: 1032 | | | +--------+ + + + in this encounter Social History + + + +--------+ + [...] [place] | | | | | | [address] | | | | | | | | +--------+---------+ + + + as of this encounter Results Anesthesia Airway Note (08/25/2018 0951) + + + | Narrative | Performed At | + + + | Hieu Bell MD 08/25/2018 9:51 Anesthesia Airway | | | Placement 08/25/2018 9:41 Preprocedure check: patient identified, | | | suction, airway equipment checked, oxygen, airway assessed and | | | patient reassessment prior to induction Rapid Sequence Induction: no | | | Mask ventilation: easy Attempts: 1 Airway type: laryngeal mask | | | Size: 5 Cuffed: cuffed Route, reference point: center of mouth | | | Trauma: none Tube placement verification: carbon dioxide detection | | | Performing provider: HEIU BELL Electronically Signed by: | | | Hieu Bell, | | | MD Guyg | | | date/time: 08/25/2018 9:51 | | + + + + + | Procedure Note | + + | Hieu Bell MD - 08/25/2018 0951 PDT Anesthesia Airway Placement08/25/2018 | | 9:41Preprocedure check: patient identified, suction, airway equipment checked, oxygen, | | airway assessed and patient reassessment prior to inductionRapid Sequence Induction: | | noMask ventilation: easyAttempts: 1Airway type: laryngeal maskSize: 5Cuffed: | | cuffedRoute, reference point: center of mouthTrauma: noneTube placement verification: | | carbon dioxide detectionPerforming provider: HIEU BELL TElectronically Signed by: | | MD Benedict Patel date/time: 08/25/2018 9:51 | |Airway type: laryngeal mask | |Size: 5 | |Cuffed: cuffed | |Route, reference point: center of mouth | |Trauma: none | |Tube placement verification: carbon dioxide detection | |Performing provider: HIEU BELL | | | | | |Electronically Signed by: MD Benedict Patel date/time: 9:51 | | | + + in this encounter Visit Diagnoses Not on filein this encounter Administered Medications + +--------+ +------+------+------+ | Medication Order | MAR | Action | Dose | Rate | Site | | | Action | Date | | | | + +--------+ +------+------+------+ | ceFAZolin (ANCEF, KEFZOL) 100 | Given | | 2 g | | | | mg/mL IV syringe 2 g 2 g, | | 9 9:40 | | | | | Intravenous, Administer over 30 | | PDT | | | | | Minutes, Prior to Incision, | | | | | | | Starting 08/25/18 at 0401, For | | | | | | | 1 dose, Give within one hour | | | | | | | prior to incision. | | | | | | + +--------+ +------+------+------+ +---+---+ | | | +---+---+ + +-------+ +--------+---+---+ | fentaNYL (PF) injection | Given | | 50 mcg | | | | Intravenous, PRN, Pain, Starting | | 9 9:37 | | | | | 08/25/18 at 0937, Anesthesia | | PDT | | | | | Intra-op | | | | | | + +-------+ +--------+---+---+ +-------+ +--------+---+---+ | Given | | 50 mcg | | | | | 9 9:40 | | | | | | PDT | | | | +-------+ +--------+---+---+ +---+---+ | | | +---+---+ + +-------+ +-------+---+---+ | ketorolac (TORADOL) injection | Given | | 30 mg | | | | Intravenous, PRN, Pain, Starting | | 9 10:25 | | | | | 08/25/18 at 1025, Anesthesia | | PDT | | | | | Intra-op | | | | | | + +-------+ +-------+---+---+ +---+---+ | | | +---+---+ + +-------+ +--------+---+---+ | lidocaine (PF) 2% injection | Given | | 100 mg | | | | PRN, Starting Tue08/25/18 at | | 9 9:40 | | | | | 0940, Anesthesia Intra-op | | PDT | | | | + +-------+ +--------+---+---+ +---+---+ | | | +---+---+ + +-------+ +------+---+---+ | midazolam (VERSED) 1 mg/mL | Given | | 2 mg | | | | injection Intravenous, PRN, | | 9 9:37 | | | | | Anxiety, Starting Tue08/25/18 at | | PDT | | | | | 0937, Anesthesia Intra-op | | | | | | + +-------+ +------+---+---+ +---+---+ | | | +---+---+ + +-------+ +--------+---+---+ | propofol (DIPRIVAN) injection | Given | | 200 mg | | | | Intravenous, PRN, Starting Fri | | 9 9:40 | | | | | 08/25/18 at 0940, Anesthesia | | PDT | | | | | Intra-op | | | | | | + +-------+ +--------+---+---+ +---+---+ | | | +---+---+ in this encounter"
--- OUTSIDE RECORDS SUMMARY | ~2018-08-29 | XMS | Encounter Summary ---
Demographics + + + | Address | [address] | | | [place] [address] | + + + | Home Phone | | + + + | Preferred Language | Unknown | + + + | Marital Status | Single | + + + | Congregational Affiliation | Unknown | + + + | Race | Unknown | + + + | Ethnic Group | Unknown | + + + Author + + + | Author | [facility] | | | and Manjitana | + + + | Organization | [facility] | | | and [place] | [...] Team Providers + +------+ + | Care Cabinet Professional Name | Role | Phone | + [...] | | | | | [place] | [address] | | | | | | | Phone: | | | | | | | [phone] | | | | | | | Fax: | | | | | | | [phone] | | + +--------+ + + + [...] | | | | | | | [place] KNEE | | | | | | | SCOPE,DIAGNO | | | | | | | STIC [place] | | | | | | | KNEE | | | | | | | SCOPE,PART | | | | | | | SYNOVECT [place] | | | | | | | KNEE | | | | | | | SCOPE,SHAVE | | | | | | | ARTICULAR | | | | | | | CART [place] | | | | | | | ARTHRS KNEE | | | | | | | W/MENISCECTO | | | | | | | MY MED&LAT | | | | | | | W/SHAVING | | | | | | | [place] ARTHRS | | | | | | | KNE SURG | | | | | | | W/MENISCECTO | | | | | | | MY MED/LAT | | | | | | | W/SHVG [place] | | | | | | | [...] + + | 08/25/ | Hospital | [facility] | Barajas Xu | S/P right knee | | 2019 | Encounter | MED CTR OR INTRA OP | MD Eusebio [address] | arthroscopy (Primary | | | | [address] | [place] | Dx); Chronic pain | | | | [place] | [address] | of right knee; | | | | [address] | | Synovial plica of | | | | [phone] | | right knee; Synovial | | [...] mg of acetaminophen (Tylenol) per day. Hydrocodone-acetaminophen ([place] ) and Oxycodone-acetaminophen (Percocet) have 325 mg [...] [place] | | | | | | [id number] | | | | | | | [...]
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
--- OUTSIDE RECORDS SUMMARY | ~2018-08-29 | XMS | Clinical Summary ---
Demographics + + + | Address | [address] [place] [address] | | | [place] [address] | + + + | Home Phone [...] [facility] | | | and Manjitana | + + + | Organization | [facility] | | | and [place] [...] Team Providers + +------+ + | Care Manager Biostatistics Name | Role | Phone | + [...] | | 2019 | Changes | | Meteorology Professor | | +--------+ + + + + [...] [place] | | | | | | [address] | | | | | | | [...] +---------+ | [employer] | PHP | [id number] | PPO | [phone] | | | PLAN | PERSON | [...] | Self | [birth year] | Home: | [address] | | | al/Fam | | 1990 | [phone] | [place] [address] | | | reggie | | | [phone] | | + +--------+ +--------+ + +
--- OUTSIDE RECORDS SUMMARY | ~2018-08-29 | XMS | Encounter Summary ---
Demographics + + + | Address | [address] | | | [place] [address] | + + + | Home Phone | | + + + | Preferred Language | Unknown | + + + | Marital Status | Single | + + + | Yazidi Affiliation | Unknown | + + + | Race | Unknown | + + + | Ethnic Group | Unknown | + + + Author + + + | Author | [facility] | | | and Manjitana | + + + | Organization | [facility] | | | and [place] [...] Team Providers + +------+ + | Care Gate Guard Name | Role | Phone | + [...] + + | 08/22/ | Office | [facility] | Xu Barajas | Plica syndrome of | | 2019 | Visit | ORTHOPEDIC SURGERY | MD Eusebio [address] | right knee (Primary | | | | [address] [facility] | [place] | Dx); Other tear of | | | | [place] | [address] | medial meniscus of | | | | [address] | | right knee as | | | | [phone] | | current injury, | | | [...] years from his primary care provider in [place]. He has recently undergone an MRI scan [...] MG tablet VITAMIN C 250 MG TABS Iuufwce-Vcrzyggvwdskd-Yjnhizmb (EXCEDRIN PO) Take by mouth. raNITIdine (ZANTAC) [...] [place] | | | | | | [address] | | | | | | | [...]
--- OUTSIDE RECORDS SUMMARY | ~2018-08-29 | XMS | Encounter Summary ---
Demographics + + + | Address | [address] | | | [place] [address] | + + + | Home Phone | | + + + | Preferred Language | Unknown | + + + | Marital Status | Single | + + + | Yazdanism Affiliation | Unknown | + + + | Race | Unknown | + + + | Ethnic Group | Unknown | + + + Author + + + | Author | [facility] | | | and Manjitana | + + + | Organization | [facility] | | | and [place] [...] Team Providers + +------+ + | Care Handbag Operator Name | Role | Phone | [...] | | | | | | | [place] | | | | | | | SCOPE,DIAGNO | | | | | | | STIC [place] | | | | | | | KNEE | | | | | | | SCOPE,PART | | | | | | | SYNOVECT [place] | | | | | | | KNEE | | | | | | | SCOPE,SHAVE | | | | | | | ARTICULAR | | | | | | | CART [place] | | | | | | | ARTHRS KNEE | | | | | | | W/MENISCECTO | | | | | | | MY MED&LAT | | | | | | | W/SHAVING | | | | | | | [place] ARTHRS | | | | | | | KNE SURG | | | | | | | W/MENISCECTO | | | | | | | MY MED/LAT | | | | | | | W/SHVG [place] | | | | | | | [...] | | | | | [address] | [place] | | | | | [place] | [address] | | | | | [address] | | | | | | [phone] | | | +--------+ + + + [...] +----+---+ + + | | 0 | [place] | | | | 9 | 43-degrees [...] +----+---+ + + | | 1 | [place] off | | | | 0 | [...] 08/25/1836 by | | | eral | gwkb-cnl-wjpuep catheter system; | Gricelda Hermosillo RN | [...] [place] | | | | | | [address] | | | | | | | [...]
--- OUTSIDE RECORDS SUMMARY | ~2018-08-29 | XMS | Encounter Summary ---
Demographics + + + | Address | [address] | | | [place] [address] | + + + | Home Phone | | + + + | Preferred Language | Unknown | + + + | Marital Status | Single | + + + | Synagogue Affiliation | Unknown | + + + | Race | Unknown | + + + | Ethnic Group | Unknown | + + + Author + + + | Author | [facility] | | | and Manjitana | + + + | Organization | [facility] | | | and [place] [...] Team Providers + +------+ + | Care Hostess Party Sales Representative Name | Role | Phone | + [...] W | | | | | | [place], | | | | | | [place] [address] | | | | | | [phone] | | | +--------+ + + + [...] [place] | | | | | | [address] | | | | | | | | +--------+---------+ + + + as of this encounter Visit Diagnoses Not on filein this encounter"
[~2018-08-29 14:10] MED LIST: METHYLPREDNISOLO4 M1 PO; MOBIC7.5 MG PO; OXYCODONE HCL20 M1 PO; SOMA350 MG PO
[2018-08-29] MEDS ORDERED: PERCOCET 5-3251 EACH PO (14:22)
[2018-08-29] MEDS ORDERED: ACID CONTROL150 MG PO (14:23)
== END 2018-08-29 16:13 | disposition home or self-care (01) ==
LOC: ED 14:10
DX: G89.18 Other acute postprocedural pain (principal); M79.662 Pain in left lower leg
CPT/HCPCS: 93971; 99283-25